=== PATIENT | female | born 1995 | race Hispanic/Latino ===

== ENCOUNTER 2019-03-14 21:25 | Emergency (ER) | payer BC | END 2019-03-14 22:48 | disposition home or self-care (01) | LOC: EDH 21:25 | DX: F41.9 Anxiety disorder, unspecified (principal); Z88.1 Allergy status to other antibiotic agents | CPT/HCPCS: 93005 ==

== ENCOUNTER 2020-11-26 10:22 | Observation (INO) | payer BC, MEDICAID ==
[~2020-11-26] VITALS: Ht 160 cm; Wt 81.6 kg
[2020-11-26 10:23] VITALS: BP 132/86
[2020-11-26 11:25] LABS: APPEARANCE,URINE Cloudy (CLEAR); BILIRUBIN,URINE Negative (NEGATIVE); COLOR,URINE Yellow (YELLOW); GLUCOSE, URINE (UA) TRACE mg/dL (NEGATIVE); KETONES,URINE Trace mg/dL (NEGATIVE); LEUKOCYTE ESTERASE ,URINE Small (NEGATIVE); NITRATE,URINE Negative (NEGATIVE); OCCULT BLOOD,URINE Negative (NEGATIVE); PH,URINE 5.5 (5.0-8.0); PROTEIN,URINE Trace mg/dL (NEGATIVE)
[2020-11-26 11:33] LABS: BACTERIA,URINE Moderate /HPF (None Seen)
[2020-11-26 11:34] LABS: RBC,URINE 0-1 /HPF (0-1)
[2020-12-06] MEDS ORDERED: PREN1TAB26 PO (13:57)
== END 2020-11-26 11:50 | disposition home or self-care (01) ==
LOC: EDH 10:22 → LDH 10:23
PROVIDERS: ADMIT Obstetrics & Gynecology; ATTEND Obstetrics & Gynecology
DX: O14.93 Unspecified pre-eclampsia, third trimester (principal); Z3A.36 36 weeks gestation of pregnancy; Z79.899 Other long term (current) drug therapy
CPT/HCPCS: 59025; 81001; 87088; G0378; G0379

== ENCOUNTER 2020-11-30 11:33 | Observation (INO) | payer MEDICAID ==
[~2020-11-30] VITALS: Ht 160 cm; Wt 86.2 kg
[2020-11-30 11:34] VITALS: BP 150/98
[2020-11-30] MEDS ORDERED: LACTATED RINGERS 1000ML 1,000 ML IV PRN (12:00)
[2020-11-30] MEDS ORDERED: OXYTOCIN-LR 20 UNITS/1000 ML 1,000 ML IV SCH (12:00)
[2020-11-30 12:14] LABS: APPEARANCE,URINE Clear (CLEAR); BILIRUBIN,URINE Negative (NEGATIVE); COLOR,URINE Yellow (YELLOW); GLUCOSE, URINE (UA) Negative (NEGATIVE); KETONES,URINE Trace mg/dL (NEGATIVE); LEUKOCYTE ESTERASE ,URINE Negative (NEGATIVE); NITRATE,URINE Negative (NEGATIVE); OCCULT BLOOD,URINE Negative (NEGATIVE); PH,URINE 5.5 (5.0-8.0); PROTEIN,URINE POS 1+ mg/dL (NEGATIVE)
[2020-11-30 13:02] LABS: BACTERIA,URINE Rare /HPF (None Seen); RBC,URINE 0-1 /HPF (0-1); SQUAMOUS EPITHELIAL CELL,UR Few /HPF (0-2)
[2020-11-30 13:21] LABS: BASOPHILS % (AUTO) 0.4 % (0.0-5.0); EOSINOPHILS % (AUTO) 0.4 % (0.0-8.0); HEMATOCRIT 33.4 % (36-48); LYMPHOCYTES % (AUTO) 18.7 % (21.0-51.0); MEAN CORPUSCULAR HEMOGLOBIN 28.9 pg (27.0-33.0); MEAN CORPUSCULAR HGB CONC 33.5 g/dL (32.0-36.0); MEAN CORPUSCULAR VOLUME 86.3 fL (79-99); MONOCYTES % (AUTO) 7.7 % (3.0-13.0); NEUTROPHILS % (AUTO) 71.3 % (40.0-77.0); PLATELET COUNT (AUTO) 202 K/uL (130-400); RED BLOOD CELL COUNT(AUTO) 3.87 MIL/uL (4.00-5.50); RED CELL DISTRIBUTION WIDTH 14.3 % (11.0-15.5); WHITE BLOOD COUNT (AUTO) 8.1 K/uL (4.8-10.8)
[2020-11-30 13:22] LABS: APPEARANCE,URINE Clear (CLEAR); BILIRUBIN,URINE Negative (NEGATIVE); COLOR,URINE Yellow (YELLOW); GLUCOSE, URINE (UA) Negative (NEGATIVE); KETONES,URINE Negative (NEGATIVE); LEUKOCYTE ESTERASE ,URINE Negative (NEGATIVE); NITRATE,URINE Negative (NEGATIVE); OCCULT BLOOD,URINE Negative (NEGATIVE); PH,URINE 5.5 (5.0-8.0); PROTEIN,URINE Trace mg/dL (NEGATIVE)
[2020-11-30 13:30] LABS: INR 0.94 (0.85-1.15); PROTHROMBIN TIME 10.3 SEC (9.6-11.6)
[2020-11-30 13:32] LABS: PARTIAL THROMBOPLASTIN TIME 26.2 SEC (26.3-35.5)
[2020-11-30 13:35] LABS: ALBUMIN 2.4 g/dL (3.5-5.0); BILIRUBIN,TOTAL 0.3 mg/dL (0.2-1.0); CREATININE 0.5 mg/dL (0.5-1.5); POTASSIUM 3.7 mmol/L (3.5-5.1); TOTAL PROTEIN, SERUM 6.6 g/dL (6.0-8.3); URIC ACID 4.8 mg/dL (2.6-7.2)
[2020-11-30 13:39] LABS: BACTERIA,URINE Rare /HPF (None Seen); RBC,URINE 0-1 /HPF (0-1); SQUAMOUS EPITHELIAL CELL,UR Rare /HPF (0-2); WBC,URINE 0-1 /HPF (0-1)
[2020-12-01 06:12] LABS: HEPATITIS Bs ANTIGEN SCREEN P Negative (Negative)
== END 2020-11-30 15:23 | disposition home or self-care (01) ==
LOC: EDH 11:33 → OBSVTOIN 11:34 → INTOOBSV 11:34 → LDH 11:34
PROVIDERS: ADMIT Obstetrics & Gynecology; ATTEND Obstetrics & Gynecology
DX: O26.893 Other specified pregnancy related conditions, third trimester (principal); R03.0 Elevated blood-pressure reading, without diagnosis of hypertension; Z20.822 Contact with and (suspected) exposure to COVID-19; O24.410 Gestational diabetes mellitus in pregnancy, diet controlled; Z3A.37 37 weeks gestation of pregnancy; Z79.899 Other long term (current) drug therapy
CPT/HCPCS: 36415; 76805; 80053; 81001; 84550; 85025; 85027; 85384; 85610; 85730; 86592; 86850; 86900; 86901; 87340; 87635; G0378 ×4; G0379

== ENCOUNTER 2020-12-04 14:54 | Inpatient (IN) | payer MEDICAID ==
[~2020-12-04] VITALS: Ht 160 cm; Wt 86.2 kg
[2020-12-04] MEDS ORDERED: NALOXONE HCL 0.4 MG/1 ML ML IV PRN (15:30)
[2020-12-04] MEDS ORDERED: MEPERIDINE-PF 50 MG/ML SYG IVP PRN (15:30)
[2020-12-04] MEDS ORDERED: LACTATED RINGERS 500 ML 500 ML IV PRN (15:30)
[2020-12-04] MEDS ORDERED: ROPIVACAINE 0.2% 100ML VIAL 100 ML EP PRN (15:30)
[2020-12-04] MEDS ORDERED: PROMETHAZINE HCL 25 MG/ML 1ML AMPULE IM PRN (15:30)
[2020-12-04] MEDS ORDERED: LACTATED RINGERS 1000ML 1,000 ML IV PRN (15:30)
[2020-12-04] MEDS ORDERED: EPHEDRINE SULFATE 50 MG/ML AMPULE IVP PRN (15:30)
[2020-12-04 16:52] LABS: BASOPHILS % (AUTO) 0.6 % (0.0-5.0); EOSINOPHILS % (AUTO) 0.2 % (0.0-8.0); HEMATOCRIT 33.9 % (36-48); LYMPHOCYTES % (AUTO) 17.9 % (21.0-51.0); MEAN CORPUSCULAR HEMOGLOBIN 28.8 pg (27.0-33.0); MEAN CORPUSCULAR HGB CONC 33.6 g/dL (32.0-36.0); MEAN CORPUSCULAR VOLUME 85.6 fL (79-99); MONOCYTES % (AUTO) 8.2 % (3.0-13.0); NEUTROPHILS % (AUTO) 70.9 % (40.0-77.0); NUCLEATED RED BLOOD CELLS 0.2 % (0.0-0.19); PLATELET COUNT (AUTO) 251 K/uL (130-400); RED BLOOD CELL COUNT(AUTO) 3.96 MIL/uL (4.00-5.50); RED CELL DISTRIBUTION WIDTH 14.4 % (11.0-15.5); WHITE BLOOD COUNT (AUTO) 9.7 K/uL (4.8-10.8)
[2020-12-04 16:53] LABS: APPEARANCE,URINE Turbid (CLEAR); BILIRUBIN,URINE Small (NEGATIVE); COLOR,URINE Dark Yellow (YELLOW); GLUCOSE, URINE (UA) Negative (NEGATIVE); KETONES,URINE Trace mg/dL (NEGATIVE); LEUKOCYTE ESTERASE ,URINE Negative (NEGATIVE); NITRATE,URINE Negative (NEGATIVE); OCCULT BLOOD,URINE Negative (NEGATIVE); PROTEIN,URINE 300 mg/dL (NEGATIVE)
[2020-12-04] MEDS ORDERED: MAGNESIUM SULFATE 40GM/1000ML 1,000 ML IV PRN (17:00)
[2020-12-04] MEDS ORDERED: LACTATED RINGERS 1000ML 1,000 ML IV SCH (17:00)
[2020-12-04] MEDS ORDERED: CALCIUM GLUC 1GM/10ML VIAL IV PRN (17:00)
[2020-12-04 17:08] LABS: INR 0.94 (0.85-1.15); PROTHROMBIN TIME 10.3 SEC (9.6-11.6)
[2020-12-04 17:09] LABS: CREATININE 0.7 mg/dL (0.5-1.5); POTASSIUM 3.8 mmol/L (3.5-5.1)
[2020-12-04 17:10] LABS: PARTIAL THROMBOPLASTIN TIME 25.6 SEC (26.3-35.5)
[2020-12-04 17:13] LABS: ALBUMIN 2.5 g/dL (3.5-5.0); BILIRUBIN,TOTAL 0.3 mg/dL (0.2-1.0); TOTAL PROTEIN, SERUM 6.5 g/dL (6.0-8.3); URIC ACID 5.8 mg/dL (2.6-7.2)
[2020-12-04 17:22] LABS: AMORPHOUS SEDIMENT,UR Many /LPF (None Seen); BACTERIA,URINE Moderate /HPF (None Seen); MUCUS,URINE Few LPF (None Seen); SQUAMOUS EPITHELIAL CELL,UR Moderate /HPF (0-2)
[2020-12-04] MEDS: MAGNESIUM 4GM PREMIX 100ML 100 ML IV PRN (17:23)
[2020-12-04] MEDS ORDERED: LABETALOL 20MG VIAL IV PRN (19:30)
[2020-12-04] MEDS ORDERED: LABETALOL 20MG SYG IV PRN (19:30)
[2020-12-04] MEDS: MISOPROSTOL 25 MCG TABLET VG PRN ×2 (19:52→23:39)
[2020-12-05] MEDS ORDERED: MISOPROSTOL 25 MCG TABLET ONE (03:48)
[2020-12-05] MEDS ORDERED: FENTANYL CITRATE PF 50 MCG/1 ML 2ML VIAL ONE (05:51)
[2020-12-05] MEDS: OXYTOCIN-LR 20 UNITS/1000 ML 1,000 ML IV SCH ×2 (08:01→20:51)
[2020-12-05] MEDS: GUAIFENESIN-DM 200/20 MG 10 ML PO PRN ×3 (09:10→20:30)
[2020-12-05] MEDS ORDERED: MAGNESIUM SULFATE 40GM/1000ML 1,000 ML IV PRN (13:00)
[2020-12-05] MEDS ORDERED: MAGNESIUM 4GM PREMIX 100ML 100 ML IV PRN (13:00)
[2020-12-05] MEDS ORDERED: CALCIUM GLUC 1GM/10ML VIAL IV PRN (13:00)
[2020-12-05] MEDS ORDERED: LACTATED RINGERS 1000ML 1,000 ML IV SCH (13:00)
[2020-12-05] MEDS ORDERED: OXYTOCIN 10 USP UNITS/ML IV PRN (13:00)
[2020-12-05] MEDS ORDERED: HYDRALAZINE 20MG/ML VIAL ONE (17:43)
[2020-12-05] MEDS ORDERED: HYDRALAZINE 20MG/ML VIAL IV SCH (18:00)
[2020-12-06] MEDS: GUAIFENESIN-DM 200/20 MG 10 ML PO PRN ×4 (02:17→18:06)
[2020-12-06 08:15] LABS: HEPATITIS Bs ANTIGEN SCREEN P Negative (Negative)
[2020-12-06] MEDS: LABETALOL HCL 100 MG TABLET PO SCH ×2 (09:37→21:15)
[2020-12-06] MEDS: MAGNESIUM 4GM PREMIX 100ML 100 ML IV PRN (09:38)
[2020-12-06 13:36] VITALS: BP 137/81
[2020-12-06] MEDS ORDERED: PREN1TAB26 PO ×2 (13:57)
[2020-12-06] MEDS ORDERED: BENZOCAINE/LANOLIN/ALOE VERA 60 ML AEROSOL TP PRN (15:00)
[2020-12-06] MEDS ORDERED: IBUPROFEN 600 MG TABLET PO PRN (15:00)
[2020-12-06] MEDS ORDERED: WITCH HAZEL 1 PAD TP PRN (15:00)
[2020-12-06] MEDS ORDERED: ACETAMINOPHEN 325 MG TAB PO PRN (15:00)
[2020-12-06] MEDS ORDERED: ACETAMINOPHEN WITH CODEINE 1 TAB TAB PO PRN (15:00)
[2020-12-06] MEDS ORDERED: LANOLIN 30GM OINTMENT TP PRN (15:00)
[2020-12-06 16:03] VITALS: BP 125/78
[2020-12-06 19:30] VITALS: BP 126/88
[2020-12-06] MEDS: DOCUSATE SODIUM 100 MG CAP PO SCH (21:14)
[2020-12-06 23:13] VITALS: BP 133/84
[2020-12-07 03:11] VITALS: BP 131/87
[2020-12-07] MEDS: GUAIFENESIN-DM 200/20 MG 10 ML PO PRN (06:38)
[2020-12-07 07:35] VITALS: BP 139/88
[2020-12-07] MEDS: LABETALOL HCL 100 MG TABLET PO SCH (08:58)
[2020-12-07] MEDS: DOCUSATE SODIUM 100 MG CAP PO SCH (08:58)
[2020-12-07 11:57] VITALS: BP 138/86
== END 2020-12-07 12:25 | disposition home or self-care (01) | DRG 560 ==
LOC: LDH 14:54 → WSH 12-06 13:36
PROVIDERS: ADMIT Obstetrics & Gynecology; ATTEND Obstetrics & Gynecology
PROC: 10E0XZZ Delivery of Products of Conception, External Approach (ICD-10-PCS; principal; 2020-12-05)
PROC: 10907ZC Drainage of Amniotic Fluid, Therapeutic from Products of Conception, Via Natural or Artificial Opening (ICD-10-PCS; 2020-12-05)
PROC: 3E033VJ Introduction of Other Hormone into Peripheral Vein, Percutaneous Approach (ICD-10-PCS; 2020-12-05)
PROC: 3E0P7GC Introduction of Other Therapeutic Substance into Female Reproductive, Via Natural or Artificial Opening (ICD-10-PCS; 2020-12-05)
PROC: 3E0R3BZ Introduction of Anesthetic Agent into Spinal Canal, Percutaneous Approach (ICD-10-PCS; 2020-12-05)
PROC: 00HU33Z Insertion of Infusion Device into Spinal Canal, Percutaneous Approach (ICD-10-PCS; 2020-12-05)
DX: O14.04 Mild to moderate pre-eclampsia, complicating childbirth (principal); O24.420 Gestational diabetes mellitus in childbirth, diet controlled; O69.81X0 Labor and delivery complicated by cord around neck, without compression, not applicable or unspecified; Z20.822 Contact with and (suspected) exposure to COVID-19; Z37.0 Single live birth; Z3A.38 38 weeks gestation of pregnancy; Z88.8 Allergy status to other drugs, medicaments and biological substances
CPT/HCPCS: 36415; 80053; 81001; 82575; 82948; 84156; 84550; 85025; 85384; 85610; 85730; 86592; 86850; 86900; 86901; 87088; 87340; 87635; A4314; G0378; J0360; J2175; J2550; J2590; J2795; J3010; J3475; J3490; J7120

== ENCOUNTER 2022-03-15 09:17 | Emergency (ER) | payer MEDICAID ==
[~2022-03-15] VITALS: Ht 160 cm; Wt 80.7 kg
[~2022-03-15 09:17] MED LIST: PREN1TAB26 PO
[2022-03-15 09:47] LABS: BASOPHILS % (AUTO) 0.5 % (0.0-5.0); EOSINOPHILS % (AUTO) 0.4 % (0.0-8.0); HEMATOCRIT 40.7 % (36-48); LYMPHOCYTES % (AUTO) 20.4 % (21.0-51.0); MEAN CORPUSCULAR HEMOGLOBIN 29.6 pg (27.0-33.0); MEAN CORPUSCULAR HGB CONC 34.6 g/dL (32.0-36.0); MEAN CORPUSCULAR VOLUME 85.5 fL (79-99); MONOCYTES % (AUTO) 5.1 % (3.0-13.0); PLATELET COUNT (AUTO) 300 K/uL (130-400); RED BLOOD CELL COUNT(AUTO) 4.76 MIL/uL (4.00-5.50); RED CELL DISTRIBUTION WIDTH 12.4 % (11.0-15.5); WHITE BLOOD COUNT (AUTO) 10.8 K/uL (4.8-10.8)
[2022-03-15 09:53] LABS: APPEARANCE,URINE CLEAR (CLEAR); BILIRUBIN,URINE NEGATIVE (NEGATIVE); COLOR,URINE YELLOW (YELLOW); GLUCOSE, URINE (UA) NEGATIVE (NEGATIVE); KETONES,URINE NEGATIVE (NEGATIVE); LEUKOCYTE ESTERASE ,URINE 25 Leu/uL (NEGATIVE); NITRATE,URINE NEGATIVE (NEGATIVE); OCCULT BLOOD,URINE NEGATIVE (NEGATIVE); PROTEIN,URINE 10 mg/dL (NEGATIVE); UROBILINOGEN,URINE 0.2 mg/dL (0.2-1.0)
[2022-03-15 09:55] LABS: HCG,QUALITATIVE URINE NEGATIVE (NEGATIVE)
[2022-03-15 09:59] LABS: BACTERIA,URINE RARE /HPF (None Seen); MUCUS,URINE RARE LPF (None Seen); RBC,URINE 0-1 /HPF (0-1); SQUAMOUS EPITHELIAL CELL,UR FEW /HPF (0-2)
[2022-03-15 10:05] LABS: CREATININE 0.7 mg/dL (0.5-1.5); POTASSIUM 3.7 mmol/L (3.5-5.1)
[2022-03-15 10:09] LABS: TOTAL PROTEIN, SERUM 8.3 g/dL (6.0-8.3)
[2022-03-15] MEDS ORDERED: PANT40TA55 PO (11:26)
[2022-03-15] MEDS ORDERED: PANTOPRAZOLE 40 MG TAB DR PO SCH (11:30)
[2022-03-15] MEDS ORDERED: PANTOPRAZOLE 40 MG TAB DR ONE (11:30)
[2022-03-15 11:35] VITALS: BP 113/77
== END 2022-03-15 11:51 | disposition home or self-care (01) ==
LOC: EDH 09:17
DX: R10.13 Epigastric pain (principal); Z88.1 Allergy status to other antibiotic agents; Z79.899 Other long term (current) drug therapy; Z98.890 Other specified postprocedural states
CPT/HCPCS: 36415; 80053; 81001; 81025; 83690; 85025

== ENCOUNTER 2023-05-30 10:35 | Observation (INO) | payer MEDICAID ==
[~2023-05-30] VITALS: Ht 160 cm; Wt 81.6 kg
[~2023-05-30 10:35] MED LIST changes: +PANT40TA55 PO
[2023-05-30 10:41] VITALS: BP 122/70; PULSE 106; RESP 20
[2023-05-30] MEDS ORDERED: LACTATED RINGERS 1000ML 1,000 ML IV SCH (11:00)
[2023-05-30 11:25] LABS: APPEARANCE,URINE CLEAR (CLEAR); BILIRUBIN,URINE NEGATIVE (NEGATIVE); COLOR,URINE YELLOW (YELLOW); GLUCOSE, URINE (UA) NEGATIVE (NEGATIVE); KETONES,URINE NEGATIVE (NEGATIVE); LEUKOCYTE ESTERASE ,URINE NEGATIVE Leu/uL (NEGATIVE); NITRATE,URINE NEGATIVE (NEGATIVE); OCCULT BLOOD,URINE NEGATIVE (NEGATIVE); PH,URINE 5.5 (5.0-8.0); PROTEIN,URINE 10 mg/dL (NEGATIVE); UROBILINOGEN,URINE 0.2 mg/dL (0.2-1.0)
[2023-05-30 11:28] LABS: ADD UA MICROSCOPIC YES
[2023-05-30 11:30] LABS: BACTERIA,URINE RARE /HPF (None Seen); MUCUS,URINE RARE LPF (None Seen); SQUAMOUS EPITHELIAL CELL,UR FEW /HPF (0-2)
== END 2023-05-30 12:30 | disposition home or self-care (01) ==
LOC: EDH 10:35 → LDH 10:55
PROVIDERS: ADMIT Obstetrics & Gynecology; ATTEND Obstetrics & Gynecology
DX: O26.893 Other specified pregnancy related conditions, third trimester (principal); O24.419 Gestational diabetes mellitus in pregnancy, unspecified control; R10.9 Unspecified abdominal pain; Z3A.29 29 weeks gestation of pregnancy; Z88.1 Allergy status to other antibiotic agents
CPT/HCPCS: 81001; G0378 ×2; G0379

== ENCOUNTER 2023-07-14 10:46 | Observation (INO) | payer MEDICAID ==
[~2023-07-14] VITALS: Ht 160 cm; Wt 84.8 kg
[2023-07-14 10:51] VITALS: BP 120/75; PULSE 100; RESP 16
[2023-07-14 11:46] LABS: ADD UA MICROSCOPIC YES; APPEARANCE,URINE CLEAR (CLEAR); BILIRUBIN,URINE NEGATIVE (NEGATIVE); COLOR,URINE YELLOW (YELLOW); GLUCOSE, URINE (UA) 200 mg/dL (NEGATIVE); KETONES,URINE NEGATIVE (NEGATIVE); LEUKOCYTE ESTERASE ,URINE NEGATIVE Leu/uL (NEGATIVE); NITRATE,URINE NEGATIVE (NEGATIVE); OCCULT BLOOD,URINE NEGATIVE (NEGATIVE); PH,URINE 5.5 (5.0-8.0); PROTEIN,URINE 10 mg/dL (NEGATIVE); UROBILINOGEN,URINE 0.2 mg/dL (0.2-1.0)
[2023-07-14 12:20] LABS: BACTERIA,URINE RARE /HPF (None Seen); MUCUS,URINE RARE LPF (None Seen); SQUAMOUS EPITHELIAL CELL,UR MANY /HPF (0-2); WBC,URINE 0-1 /HPF (0-1)
== END 2023-07-14 12:40 | disposition home or self-care (01) ==
LOC: EDH 10:46 → LDH 10:47
PROVIDERS: ADMIT Obstetrics & Gynecology; ATTEND Obstetrics & Gynecology
DX: O36.8130 Decreased fetal movements, third trimester, not applicable or unspecified (principal); O24.419 Gestational diabetes mellitus in pregnancy, unspecified control; Z3A.36 36 weeks gestation of pregnancy; Z88.1 Allergy status to other antibiotic agents
CPT/HCPCS: 81001; 76819; G0378 ×2; G0379

== ENCOUNTER 2023-07-29 01:15 | Observation (INO) | payer MEDICAID ==
[~2023-07-29] VITALS: Ht 160 cm; Wt 85.7 kg
[2023-07-29 01:17] VITALS: BP 130/85; PULSE 98; RESP 20
[2023-07-29 01:42] LABS: APPEARANCE,URINE CLOUDY (CLEAR); BILIRUBIN,URINE NEGATIVE (NEGATIVE); COLOR,URINE YELLOW (YELLOW); GLUCOSE, URINE (UA) NEGATIVE (NEGATIVE); KETONES,URINE 10 mg/dL (NEGATIVE); LEUKOCYTE ESTERASE ,URINE 500 Leu/uL (NEGATIVE); NITRATE,URINE NEGATIVE (NEGATIVE); OCCULT BLOOD,URINE NEGATIVE (NEGATIVE); PH,URINE 5.5 (5.0-8.0); PROTEIN,URINE 20 mg/dL (NEGATIVE); UROBILINOGEN,URINE 0.2 mg/dL (0.2-1.0)
[2023-07-29 01:45] LABS: ADD UA MICROSCOPIC YES
[2023-07-29 01:46] LABS: MUCUS,URINE RARE LPF (None Seen); SQUAMOUS EPITHELIAL CELL,UR MANY /HPF (0-2); WBC,URINE 51-100 /HPF (0-1)
[2023-07-29 01:53] LABS: BACTERIA,URINE Few /HPF (None Seen)
[2023-07-29] MEDS: LACTATED RINGERS 1000ML IV PRN (02:13)
== END 2023-07-29 04:01 | disposition short-term general hospital (02) ==
LOC: EDH 01:15 → LDH 01:16
PROVIDERS: ADMIT Obstetrics & Gynecology; ATTEND Obstetrics & Gynecology
DX: O26.893 Other specified pregnancy related conditions, third trimester (principal); R10.9 Unspecified abdominal pain; O99.891 Other specified diseases and conditions complicating pregnancy; M54.9 Dorsalgia, unspecified; O24.419 Gestational diabetes mellitus in pregnancy, unspecified control; Z3A.38 38 weeks gestation of pregnancy
CPT/HCPCS: 59025; 96360; 96361; 87088; 81001; G0378 ×3; G0379; J7120 ×2

== ENCOUNTER 2023-09-06 05:53 | Emergency (ER) | payer MEDICAID, OTHER ==
[~2023-09-06] VITALS: Ht 160 cm; Wt 76.7 kg
[~2023-09-06 05:53] MED LIST changes: -PANT40TA55 PO
[2023-09-06 06:26] LABS: BASOPHILS # (AUTO) 0.05 K/uL (0.00-0.20); BASOPHILS % (AUTO) 0.5 % (0.0-5.0); EOSINOPHILS # (AUTO) 0.12 K/uL (0.00-0.70); EOSINOPHILS % (AUTO) 1.2 % (0.0-8.0); HEMATOCRIT 41.8 % (36-48); IMMATURE GRANULOCYTE ABSOLUTE 0.08 K/uL (0-1); LYMPHOCYTES # (AUTO) 2.1 K/uL (1.0-4.8); LYMPHOCYTES % (AUTO) 21.7 % (21.0-51.0); MEAN CORPUSCULAR HEMOGLOBIN 27.8 pg (27.0-33.0); MEAN CORPUSCULAR VOLUME 84.3 fL (79-99); MONOCYTES # (AUTO) 0.4 K/uL (0.1-1.0); MONOCYTES % (AUTO) 4.4 % (3.0-13.0); NEUTROPHILS % (AUTO) 71.4 % (40.0-77.0); PLATELET COUNT (AUTO) 261 K/uL (130-400); RED BLOOD CELL COUNT(AUTO) 4.96 MIL/uL (4.00-5.50); RED CELL DISTRIBUTION WIDTH 13.6 % (11.0-15.5); WHITE BLOOD COUNT (AUTO) 9.8 K/uL (4.8-10.8)
[2023-09-06 06:32] LABS: APPEARANCE,URINE CLEAR (CLEAR); BILIRUBIN,URINE NEGATIVE (NEGATIVE); COLOR,URINE LIGHT-YELLOW (YELLOW); GLUCOSE, URINE (UA) NEGATIVE (NEGATIVE); KETONES,URINE NEGATIVE (NEGATIVE); LEUKOCYTE ESTERASE ,URINE 75 Leu/uL (NEGATIVE); NITRATE,URINE NEGATIVE (NEGATIVE); OCCULT BLOOD,URINE NEGATIVE (NEGATIVE); PH,URINE 5.5 (5.0-8.0); PROTEIN,URINE 10 mg/dL (NEGATIVE); UROBILINOGEN,URINE 0.2 mg/dL (0.2-1.0)
[2023-09-06] MEDS: PANTOPRAZOLE 40 MG/VIAL ONE (06:35)
[2023-09-06 06:36] LABS: BILIRUBIN,TOTAL 0.5 mg/dL (0.2-1.0); CREATININE 0.7 mg/dL (0.5-1.0); POTASSIUM 3.5 mmol/L (3.5-5.1); TOTAL PROTEIN, SERUM 8.2 g/dL (6.0-8.3)
[2023-09-06] MEDS: PANTOPRAZOLE 40 MG/VIAL IVP ONE (06:36)
[2023-09-06 06:40] LABS: ADD UA MICROSCOPIC YES
[2023-09-06 06:42] LABS: MUCUS,URINE RARE LPF (None Seen); SQUAMOUS EPITHELIAL CELL,UR MOD /HPF (0-2)
[2023-09-06] MEDS ORDERED: CEPH500B PO (06:48)
[2023-09-06] MEDS ORDERED: PANT40TA55 PO (06:48)
[2023-09-06 06:57] VITALS: BP 107/74; PULSE 79; RESP 16; O2SAT 98
== END 2023-09-06 06:59 | disposition home or self-care (01) ==
LOC: EDH 05:53
DX: K21.9 Gastro-esophageal reflux disease without esophagitis (principal); N39.0 Urinary tract infection, site not specified; Z98.890 Other specified postprocedural states; Z88.0 Allergy status to penicillin
CPT/HCPCS: 80053; 83690; 85025; 87086 ×2; 87186; 81001; 36415; 96374; 99283; J2470